=== PATIENT | female | born 1975 | race Two or more races ===

== ENCOUNTER 2017-07-08 10:26 | Emergency (ER) | payer OTHER | END 2017-07-08 12:15 | disposition home or self-care (01) | LOC: M ED 10:26 | DX: S60.871A Other superficial bite of right wrist, initial encounter (principal); W54.0XXA Bitten by dog, initial encounter; Y92.89 Other specified places as the place of occurrence of the external cause; Y93.89 Activity, other specified; Y99.0 Civilian activity done for income or pay; M54.9 Dorsalgia, unspecified; Z79.899 Other long term (current) drug therapy | CPT/HCPCS: 73110 ==

== ENCOUNTER 2018-09-16 09:36 | Emergency (ER) | payer OTHER ==
[~2018-09-16] VITALS: Ht 152.4 cm; Wt 54.5 kg
[~2018-09-16 09:36] MED LIST: MELOPOW PO; PROP10TAB PO; ULTRTA PO; ZANA2CAP PO
--- NOTE | 2018-09-16 10:54 | REP ---
Left wrist: Four views. History: Injury in a fall. Findings: Four views of the left wrist demonstrate overall normal mineralization. There is no evidence of fracture or subluxation. Bones, joints, soft tissues are unremarkable. Impression: Negative left wrist radiographs. Electronically Signed by Uziel Bradley MD 09/16/2018 10:46 A
--- NOTE | 2018-09-16 10:56 | REP ---
AP PELVIS: Single view. HISTORY: Right posterior pelvic pain. FINDINGS: The bony pelvic ring is intact. Sacrum and SI joints are unremarkable. Symphysis pubis has a normal appearance. Femoral heads are smooth and rounded and hip joint spaces are preserved. IMPRESSION: Negative AP view of the pelvis. Electronically Signed by Uziel Bradley MD 09/16/2018 11:25 A
--- NOTE | 2018-09-16 10:57 | REP ---
LEFT ANKLE SERIES: Four views. HISTORY: Injury in a fall. FINDINGS: Four views of the left ankle demonstrate an intact ankle mortise. No fractures seen. Bones, joints and soft tissues are unremarkable. There is mild Achilles calcaneal spurring. IMPRESSION: Mild Achilles calcaneal spurring. Otherwise negative left ankle radiographs. No fractures seen. Electronically Signed by Uziel Bradley MD 09/16/2018 11:26 A
[2018-09-16] MEDS ORDERED: NAPR-50 PO (11:02)
[2018-09-16] MEDS ORDERED: CYCL10TA PO (11:02)
[2018-09-16 11:06] VITALS: BP 125/74
== END 2018-09-16 11:17 | disposition home or self-care (01) ==
LOC: M ED 09:36
DX: S30.0XXA Contusion of lower back and pelvis, initial encounter (principal); S63.502A Unspecified sprain of left wrist, initial encounter; S93.402A Sprain of unspecified ligament of left ankle, initial encounter; W00.0XXA Fall on same level due to ice and snow, initial encounter; Y92.89 Other specified places as the place of occurrence of the external cause; Y99.0 Civilian activity done for income or pay

== ENCOUNTER → 2019-03-24 | Outpatient (REF) | payer OTHER ==
[~2019-03-24] MED LIST changes: +CYCL10TA PO; +NAPR-837 PO
[2019-03-24 14:14] LABS: RHEUMATOID FACTOR QUANT < 10.0 IU/ML (<15.0)
[2019-03-24 14:30] LABS: FOLATE 16.6 NG/ML; VITAMIN B12 LEVEL 361 PG/ML
[2019-03-29 00:07] LABS: ANTINUCLEAR ANTIBODIES DIRECT Negative (Negative); COPPER PLASMA 101 ug/dL (72-166); LEAD BLOOD ADULT <1 ug/dL (0-4); MERCURY LEVEL 3.4 ug/L (0.0-14.9); SJOGREN'S ANTI SS-A <0.2 AI (0.0-0.9); SJOGREN'S ANTI SS-B <0.2 AI (0.0-0.9)
[2019-03-29 08:06] LABS: CERULOPLASMIN 21.7 mg/dL (19.0-39.0); VITAMIN B1 LEVEL WHOLE BLOOD 128.9 nmol/L (66.5-200.0); VITAMIN B6,PYRIDOXAL PHOSPHATE 8.3 ug/L (2.0-32.8)
[2019-03-30 15:35] LABS: ANTI DS-DNA AB <1:10 titer (.); CYCLIC CITRULLINATED PEPTIDE 5 units (0-19); VITAMIN E(ALPHA TOCOPHEROL) 13.6 mg/L (7.0-25.1); VITAMIN E(GAMMA TOCOPHEROL) 1.2 mg/L (0.5-5.5)
== END ==
LOC: M LABNEURO 09:24
PROVIDERS: ATTEND Psychiatry & Neurology Neurology
DX: R20.0 Anesthesia of skin (principal); R53.1 Weakness

== ENCOUNTER 2022-08-26 17:34 | Emergency (ER) | payer OTHER ==
[~2022-08-26] VITALS: Ht 149.9 cm; Wt 51.8 kg
[~2022-08-26 17:34] MED LIST changes: +CYCL-707 PO; -CYCL10TA PO
[2022-08-27 01:25] VITALS: BP 150/90
== END 2022-08-27 05:07 | disposition left against medical advice (07) ==
LOC: M ED 17:34
DX: Z53.21 Procedure and treatment not carried out due to patient leaving prior to being seen by health care provider (principal)

== ENCOUNTER → 2023-10-22 | Outpatient (CLI) | payer OTHER ==
[2023-10-22 13:33] LABS: BASO # 0.1 10^3/uL (0.0-0.2); BASO % 1.5 % (0.0-1.0); EOS # 0.2 10^3/uL (0.0-0.5); HEMATOCRIT 39.9 % (36.0-47.0); HEMOGLOBIN 13.4 g/dl (12.0-15.5); LYMPH # 1.1 10^3/uL (1.5-5.0); LYMPH % 21.2 % (24.0-44.0); MEAN CORPUSCULAR HEMOGLOBIN 30.6 pg (27.0-33.0); MEAN CORPUSCULAR HGB CONC 33.6 g/dl (32.0-36.5); MEAN CORPUSCULAR VOLUME 91.1 fl (80.0-96.0); MONO # 0.5 10^3/uL (0.0-0.8); MONO % 10.4 % (2.0-8.0); NEUTROPHILS # 3.3 10^3/uL (1.5-8.5); NEUTROPHILS % 62.7 % (36.0-66.0); PLATELET COUNT, AUTOMATED 328 10^3/uL (150-450); RED BLOOD COUNT 4.38 10^6/uL (4.00-5.40); WHITE BLOOD COUNT 5.2 10^3/uL (4.0-10.0)
[2023-10-22 13:40] LABS: CREATININE, URINE 94.8 MG/DL
[2023-10-22 13:43] LABS: MALB URINE SIEMENS < 3.0 MG/L; MAU/CREAT RATIO 3.1 MCG/MG (0.0-30.0)
[2023-10-22 14:11] LABS: FERRITIN 9.8 NG/ML (7.3-270.7); FREE T4 1.01 NG/DL (0.89-1.76); THYROID STIMULATING HORMONE 2.471 uIU/ML (0.55-4.78)
[2023-10-22 14:17] LABS: TOTAL 25(OH) VITAMIN D 8.6 NG/ML (20.0-100.0)
[2023-10-23 21:07] LABS: INSULIN LEVEL 3.9 uIU/mL (2.6-24.9); TISSUE TRANSGLUTAMINASE IgA <2 U/mL (0-3); TISSUE TRANSGLUTAMINASE IgG <2 U/mL (0-5)
== END ==
LOC: M PLALAB 09:17
PROVIDERS: ATTEND Internal Medicine Hematology
DX: R53.82 Chronic fatigue, unspecified (principal)

== ENCOUNTER → 2024-01-31 | Outpatient (REF) | payer OTHER | LOC: M SFHCPLAZ 10:19 | PROVIDERS: ATTEND Internal Medicine Hematology | DX: K52.9 Noninfective gastroenteritis and colitis, unspecified (principal) ==

== ENCOUNTER → 2024-02-01 | Outpatient (CLI) | payer OTHER ==
[2024-02-01 09:55] LABS: BASO # 0.1 10^3/uL (0.0-0.2); EOS # 0.1 10^3/uL (0.0-0.5); EOS % 1.7 % (0.0-3.0); HEMATOCRIT 39.3 % (36.0-47.0); HEMOGLOBIN 13.8 g/dl (12.0-15.5); LYMPH # 1.2 10^3/uL (1.5-5.0); MEAN CORPUSCULAR HEMOGLOBIN 30.8 pg (27.0-33.0); MEAN CORPUSCULAR HGB CONC 35.1 g/dl (32.0-36.5); MEAN CORPUSCULAR VOLUME 87.7 fl (80.0-96.0); MONO # 0.6 10^3/uL (0.0-0.8); MONO % 10.7 % (2.0-8.0); NEUTROPHILS # 3.8 10^3/uL (1.5-8.5); NEUTROPHILS % 66.4 % (36.0-66.0); PLATELET COUNT, AUTOMATED 329 10^3/uL (150-450); RED BLOOD COUNT 4.48 10^6/uL (4.00-5.40); WHITE BLOOD COUNT 5.8 10^3/uL (4.0-10.0)
== END ==
LOC: M LAB 01-29 16:59
PROVIDERS: ATTEND Internal Medicine Hematology
DX: K52.9 Noninfective gastroenteritis and colitis, unspecified (principal); R53.82 Chronic fatigue, unspecified

== ENCOUNTER → 2024-02-09 | Outpatient (CLI) | payer OTHER ==
[~2024-02-09] MED LIST changes: +ISOVUE-370 76% 100ML VIAL As Ordered ONE
== END ==
LOC: M RAD 15:32
PROVIDERS: ATTEND Internal Medicine Hematology
DX: K52.9 Noninfective gastroenteritis and colitis, unspecified (principal)
CPT/HCPCS: 71250; 74178; Q9967

== ENCOUNTER → 2024-04-05 | Outpatient (CLI) | payer OTHER ==
[~2024-04-05] MED LIST changes: +E-Z-GAS II EFFERVESCENT PACKET (SODIUM BICARB./CITRIC ACID/SIMETHICONE) As Ordered ONE; +E-Z-HD 98% w/w 340GM SUSP BTL As Ordered ONE; +E-Z-PAQUE 96% w/w SUSP 176GM BTL As Ordered ONE; -ISOVUE-370 76% 100ML VIAL As Ordered ONE
== END ==
LOC: M RAD 08:31
PROVIDERS: ATTEND Internal Medicine Hematology
DX: R13.19 Other dysphagia (principal)

== ENCOUNTER → 2024-09-20 | Outpatient (CLI) | payer OTHER ==
[~2024-09-20] MED LIST changes: -E-Z-GAS II EFFERVESCENT PACKET (SODIUM BICARB./CITRIC ACID/SIMETHICONE) As Ordered ONE; -E-Z-HD 98% w/w 340GM SUSP BTL As Ordered ONE; -E-Z-PAQUE 96% w/w SUSP 176GM BTL As Ordered ONE
== END ==
LOC: M WHC 06:38
PROVIDERS: ATTEND Student in an Organized Health Care Education/Training Program
DX: Z12.31 Encounter for screening mammogram for malignant neoplasm of breast (principal); R92.343 Mammographic extreme density, bilateral breasts

== ENCOUNTER → 2025-02-28 | Outpatient (REF) | payer OTHER | LOC: M SFHCWAGY 15:04 | PROVIDERS: ATTEND Nurse Practitioner Family | DX: L91.8 Other hypertrophic disorders of the skin (principal) ==

== ENCOUNTER → 2025-05-24 | Outpatient (REF) | payer OTHER | LOC: M SFHCPLAZ 07:56 | PROVIDERS: ATTEND Family Medicine | DX: R22.0 Localized swelling, mass and lump, head (principal) ==

== ENCOUNTER → 2025-07-10 | Outpatient (CLI) | payer OTHER | LOC: M PLALAB 09:42 | PROVIDERS: ATTEND Family Medicine | DX: R22.0 Localized swelling, mass and lump, head (principal) ==